=== PATIENT | female | born 1945 | race Caucasian/White ===

== ENCOUNTER 2024-03-19 00:05 | Inpatient (IN) | payer MEDICARE, BC ==
[~2024-03-19] VITALS: Ht 167.6 cm; Wt 86.2 kg
[2024-03-19] VITALS (12 sets, daily range): BP systolic 89–120; BP diastolic 46–73; PULSE 59–73; TEMP 97.5–98.7
[2024-03-19] MEDS ORDERED: ARICEPT10 MG PO (00:16)
[2024-03-19] MEDS ORDERED: OSPHENA60 MG PO (00:16)
[2024-03-19] MEDS ORDERED: VASCEPA1 GM PO (00:16)
[2024-03-19] MEDS ORDERED: TIROSINT25 MC1 PO (00:17)
[2024-03-19] MEDS ORDERED: ZOCOR5 MG PO (00:17)
[2024-03-19] MEDS ORDERED: VESICARE10 MG PO (00:18)
[2024-03-19] MEDS ORDERED: KAPSPARGO SPRIN25 MG PO (00:19)
[2024-03-19] MEDS ORDERED: ASPIRIN 81M81 MG/TA2 PO (00:20)
[2024-03-19] MEDS ORDERED: VITAMIN D31000 I1 PO (00:20)
[2024-03-19] MEDS ORDERED: ZYRTEC ALLERGY10 MG PO (00:20)
[2024-03-19] MEDS ORDERED: CALCIUM CITRAT200 M2 PO (00:21)
[2024-03-19] MEDS ORDERED: PREVAGEN PO (00:22)
[2024-03-19 00:50] LABS: BASO % 0.1 % (0.0-2.0); EOS # 0.1 K/mm3 (0.0-0.7); EOS % 0.5 % (0.0-4.0); GRAN # 11.7 K/mm3 (1.4-6.5); GRAN % 84.1 % (42.2-75.2); LYMPH # 1.6 K/mm3 (1.2-3.4); LYMPH % 11.5 % (20.0-51.0); MEAN CELL VOLUME 90 fl (80.0-100.0); MEAN CORPUSCULAR HGB CONC 33 g/dl (33.0-37.0); MEAN PLATELET VOLUME 10.8 fl (7.4-10.4); MONO # 0.5 K/mm3 (0.1-0.6); MONO % 3.4 % (1.7-9.3); PLATELET COUNT 266 K/mm3 (130-400); RED BLOOD COUNT 3.24 M/mm3 (4.10-5.30); REDCELL DISTRIBUTION WIDTH-CV 12.6 % (11.5-14.5)
[2024-03-19 00:54] LABS: HEMOGLOBIN 9.6 g/dl (12.5-16.0); MEAN CORPUSCULAR HEMOGLOBIN 30 pg (27-31)
[2024-03-19 00:58] LABS: INR 1.1 (0.8-3.0); PROTHROMBIN TIME 11.9 SECONDS (9.7-12.8)
[2024-03-19 01:01] LABS: PARTIAL THROMBOPLASTIN TIME 23.2 SECONDS (26.0-37.0)
[2024-03-19 01:03] LABS: ALANINE AMINOTRANSFERASE 7 U/L (0-55); ALBUMIN 2.8 g/dL (3.4-4.8); ALKALINE PHOSPHATASE 52 U/L (40-150); ANION GAP 11 mmol/L (7-16); AST,SGOT 14 U/L (5-34); BILIRUBIN,TOTAL 0.2 mg/dL (0.2-1.2); BLOOD UREA NITROGEN 38 mg/dL (10-20); CALCIUM 8.6 mg/dL (8.4-10.2); CHLORIDE 110 mEq/L (98-107); CREATININE, serum 0.87 mg/dL (0.57-1.11); GLUCOSE 142 mg/dL (70-99); POTASSIUM 4.3 mEq/L (3.5-4.5); SODIUM 142 mEq/L (136-145); TOTAL PROTEIN 5.8 g/dl (6.2-8.1)
[2024-03-19 01:10] LABS: TROPONIN-I < 0.010 ng/mL (0.00-0.033)
[2024-03-19] MEDS ORDERED: Pantoprazole 40 MG in NS 10 ML IV SCH (01:23)
[2024-03-19] MEDS ORDERED: LOPRESSOR 225 MG/TAB PO (01:26)
[2024-03-19] MEDS ORDERED: NS 1,000 ML IV SCH (01:30)
[2024-03-19] MEDS ORDERED: Iohexol 300 - 100 ML VIAL IV ONE (01:34)
[2024-03-19 01:52] LABS: URINE APPEARANCE CLEAR (CLEAR/HAZY); URINE BLOOD NEGATIVE (NEGATIVE); URINE COLOR YELLOW (YELLOW); URINE GLUCOSE NEGATIVE (NEGATIVE); URINE KETONE NEGATIVE (NEGATIVE); URINE NITRATE NEGATIVE (NEGATIVE); URINE PROTEIN(semi-quant) NEGATIVE (NEGATIVE); URINE UROBILINOGEN 0.2 E.U/dL (0.2-1.0)
[2024-03-19 01:54] LABS: COLLECTION METHOD CLEAN CATCH
[2024-03-19] MEDS ORDERED: cefTRIAXone 2 G in Water For Injection,Sterile 20 ML IV SCH (02:15)
--- NOTE | 2024-03-19 03:00 | NUR ---
PATIENT ARRIVED TO ROOM #318 VIA WHEELCHIAR FROM ER. PATIENT ASSISTED TO BED WITH STAND BY ASSIST. GAIT STEADY. INT TO LEFT WRIST INTACT WITH NO COMPLICATIONS NOTED. DAUGHTER GISELA AT BEDSIDE. PATIENT VERBALIZED UNDERSTANDING OF CALL LIGHT AND BED CONTROLS. PATIENT DENIES ANY NEEDS AT THIS TIME. BED IN LOW POSITION WITH WHEELS LOCKED WITH RAILS UP X3 AND CALL LIGHT WITHIN REACH. BED ALARM ON.
--- NOTE | 2024-03-19 03:15 | NUR ---
PATIENT RESTING IN BED WITH TV OFF WITH DAUGHTER AT BEDSIDE WITH NO ACUTE DISTRESS NOTED. PATIENT ON ROOM AIR. INT TO LEFT WRIST INTACT WITH NO COMPLICATIONS NOTED. INTIAL INTAKE AND INITAL ASSESSMENT COMPLETED AT THIS TIME. PATIENT TOLERATED WELL. PATIENT DENIES ANY NEEDS AT THIS TIME. BED IN LOW POSITION WITH WHEELS LOCKED WITH RAILS UP X3 AND CALL LIGHT WITHIN REACH. BED ALARM ON.
--- NOTE | 2024-03-19 03:25 | NUR ---
PATIENT RESTING IN BED LAYING ON LEFT SIDE WITH TV OFF WITH DAUGHTER AT BEDSAIDE WITH NO ACUTE DISTRESS NOTED. PATIENT ON ROOM AIR. INT TO LEFT WRIST INTACT WITH NO COMPLICATIONS NOTED. MEDICATION ADMINISTRATION COMPLETED AT THIS TIME. PATIENT TOLERATED WELL. PAITENT DENIES ANY NEEDS AT THIS TIME. BED IN LOW POSITION WITH WHEELS LOCKED WITH RAILS UP X3 AND CALL LIGHT WITHIN REACH. BED ALARM ON.
[2024-03-19 06:56] LABS: BASO % 0.2 % (0.0-2.0); EOS % 0.3 % (0.0-4.0); GRAN # 8.5 K/mm3 (1.4-6.5); GRAN % 79.5 % (42.2-75.2); LYMPH # 1.7 K/mm3 (1.2-3.4); LYMPH % 15.4 % (20.0-51.0); MEAN CELL VOLUME 91 fl (80.0-100.0); MEAN CORPUSCULAR HGB CONC 32 g/dl (33.0-37.0); MEAN PLATELET VOLUME 11.2 fl (7.4-10.4); MONO # 0.4 K/mm3 (0.1-0.6); MONO % 3.9 % (1.7-9.3); PLATELET COUNT 228 K/mm3 (130-400); RED BLOOD COUNT 2.91 M/mm3 (4.10-5.30); REDCELL DISTRIBUTION WIDTH-CV 12.7 % (11.5-14.5)
[2024-03-19 07:00] LABS: HEMATOCRIT 26.6 % (37.0-47.0); HEMOGLOBIN 8.5 g/dl (12.5-16.0); MEAN CORPUSCULAR HEMOGLOBIN 29 pg (27-31)
[2024-03-19 07:09] LABS: CALCIUM 8.1 mg/dL (8.4-10.2); CREATININE, serum 0.77 mg/dL (0.57-1.11); POTASSIUM 4.2 mEq/L (3.5-4.5)
[2024-03-19] MEDS ORDERED: Patient's Own Medication Item PO SCH (08:00)
[2024-03-19] MEDS ORDERED: Cholecalciferol (Vit D3) 1000 Units TAB PO SCH (09:00)
[2024-03-19] MEDS ORDERED: Solifenacin 5 MG **** subs to Oxybutynin XL 5 MG PO SCH (09:00)
[2024-03-19] MEDS ORDERED: Cetirizine 10 MG TAB PO SCH (09:00)
--- NOTE | 2024-03-19 12:40 | NUR ---
D: Initial visit: Career Development Specialist stopped by room on rounds. A: Pt was resting and content. Pt has no needs right now. P: Career Development Specialist informed pt that if she needed anything from the veterinary surgeon area to let her nurse know Career Development Specialist will follow up as needed.
--- NOTE | 2024-03-19 13:59 | NUR ---
Product/Industry Consultant met with patient to discuss discharge planning. Patient lives in [place], [place] but was here visiting her daughter, Kitty (ph#[phone]). Patient did remark she lost her a few years ago and plans to move to [place] at some point. Patient stated she is on the waitlist at [facility]. Patient does not have a primary care physician she regularly sees as she stated she is normally pretty healthy. Patient stated there is a clinic in [place]. Patient does not use any DME and is independent with [facility]. Patient thinks she has completed DPOA-HC that designates either her daughter, Kitty or brother, Himanshu. Patient plans to return to Kitty's home at time of discharge. Discharge Plan: Home with Family
[2024-03-19] MEDS ORDERED: Ondansetron 4 MG/2 ML VIAL IV PRN (15:15)
[2024-03-19] MEDS ORDERED: Bisacodyl 5 MG TAB PO SCH (16:00)
[2024-03-19 16:21] LABS: HEMOGLOBIN 8.1 g/dl (12.5-16.0)
[2024-03-19] MEDS ORDERED: Polyethylene Glycol 3350 119 GM BOTTLE PO SCH (18:00)
--- NOTE | 2024-03-19 18:57 | NUR ---
PATIENT RESTING IN BED WITH TV ON WITH NO FAMILY PRESENT WITH NO ACUTE DISTRESS NOTED. PATIENT ON ROOM AIR. NS INFUSING INTO LEFT WRIST WITH NO COMPLICATIONS NOTED. PATIENT REQUESTED HELP TO BATHROOM AND WAS ASSISTED WITH STAND BY ASSIST. GAIT STEADY. PATIENT DID OWN FRANCOISE CARE. PATIENT ASSISTED BACK TO BED AND HELPED TO REPOSITION FOR COMFORT. PATIENT TOLERATED WELL. PATIENT CARE ASSUMED FROM [facility]. PATIENT DENIES ANY OTHER NEEDS. BED IN LOW POSITION WITH WHEELS LOCKED WITH RAILS UP X2 AND CALL LIGHT WITHIN REACH. BED ALARM ON.
--- NOTE | 2024-03-19 19:31 | NUR ---
Pt tolerated advance from NPO to clear liquid diet without c/o nausea or vomitting. Pt did have a large bloody stool this morning and blood pressure on soft side. Dr. Gomez made aware. New orders rec'd. Aware that PRBC became ready at approximately 1815. Pt denied pain or needs throughout day. IVF infusing to LW as ordered without s/s IV related complications. Bedside report given to LINDA Pang and she is going to transfuse blood.
[2024-03-19] MEDS ORDERED: Atorvastatin 10 MG TAB PO SCH (21:00)
[2024-03-19] MEDS ORDERED: Simvastatin 10 MG **** subs to Atorvastatin 5 MG PO SCH (21:00)
[2024-03-19] MEDS ORDERED: Donepezil 5 MG TAB PO SCH (21:00)
--- NOTE | 2024-03-19 21:15 | NUR ---
PATIENT RESTING IN BED WITH TV ON WITH NO FAMILY PRESENT WITH NO ACUTE DISTRESS NOTED. PATIENT ON ROOM AIR. NS INFUSING INTO LEFT WRIST WITH NO COMPLICATIONS NOTED. PATIENT REQUESTED HELP TO BATHROOM AND PATIENT ASSSITED TO BATHROO BY PRIMARY NURSE. PATIENT HAD LARGE GREEN BOWEL MOVEMENT. PATIENT GIVEN PULLUP DUE TO HAVE MESSED UP HER UNDERWEAR. PATIENT DID OWN FRANCOISE CARE AND WAS ASSISTED BACK TO BED WITH STAND BY ASSIST. GAIT STEADY. PATIENT HELPED TO REPOSITION FOR COMFORT. ASSESSMENT, MEDICATION ADMINISTRATION, AND VITAL SIGNS TAKEN. PATIENT TOLERATED WELL. PATIENT DENIES ANY OTHER NEEDS AT THIS TIME. BED IN LOW POSITION WITH WHEELS LOCKED WITH RAILS UP X2 AND CALL LIGHT WITHIN REACH. BED ALARM ON.
--- NOTE | 2024-03-19 22:45 | NUR ---
PATIENT PULLED OUT WRIST IV WHILE GOING TO BATHROOM. CATHETER INTACT. PRESSURE DRESSING APPLIED.
--- NOTE | 2024-03-19 22:52 | NUR ---
NEW IV OBTAINED TO LEFT OUTER AC. PATIENT TOLERATED WELL. PATIENT VERBALIZED UNDERSTANDING THAT BLOOD WOULD BE STARTED SOON. VITAL SIGNS TAKEN.
--- NOTE | 2024-03-19 23:35 | NUR ---
UNIT OF PRBC STARTED AT 2335. PATIENT TOLERATING WELL.
[2024-03-20] VITALS (17 sets, daily range): BP systolic 101–134; BP diastolic 40–68; PULSE 66–94; TEMP 97.7–98.9
[2024-03-20] MEDS ORDERED: Polyethylene Glycol 3350 119 GM BOTTLE PO SCH (05:00)
[2024-03-20] MEDS ORDERED: LR 1,000 ML IV SCH (05:00)
[2024-03-20 05:03] LABS: BASO % 0.3 % (0.0-2.0); EOS # 0.1 K/mm3 (0.0-0.7); EOS % 1.3 % (0.0-4.0); GRAN # 6.4 K/mm3 (1.4-6.5); GRAN % 68.9 % (42.2-75.2); LYMPH # 2.2 K/mm3 (1.2-3.4); LYMPH % 23.8 % (20.0-51.0); MEAN CELL VOLUME 89 fl (80.0-100.0); MEAN CORPUSCULAR HGB CONC 32 g/dl (33.0-37.0); MEAN PLATELET VOLUME 10.9 fl (7.4-10.4); MONO # 0.4 K/mm3 (0.1-0.6); MONO % 4.6 % (1.7-9.3); PLATELET COUNT 196 K/mm3 (130-400); REDCELL DISTRIBUTION WIDTH-CV 13.3 % (11.5-14.5)
[2024-03-20 05:04] LABS: HEMATOCRIT 28.4 % (37.0-47.0); HEMOGLOBIN 9.2 g/dl (12.5-16.0); MEAN CORPUSCULAR HEMOGLOBIN 29 pg (27-31)
[2024-03-20 05:21] LABS: CREATININE, serum 0.75 mg/dL (0.57-1.11); MAGNESIUM 1.7 mg/dL (1.6-2.6); POTASSIUM 3.8 mEq/L (3.5-4.5)
[2024-03-20] MEDS ORDERED: Lidocaine PF 2% (20 MG/ML) 5 ML VIAL ONE (12:28)
[2024-03-20 19:48] LABS: CLOSTRIDIUM DIFF A/B NEG
[2024-03-21 03:52] VITALS: BP 116/65; PULSE 63; TEMP 97.8
[2024-03-21 05:00] VITALS: BP_SYST 126
[2024-03-21 06:33] LABS: HEMATOCRIT 26.6 % (37.0-47.0); HEMOGLOBIN 8.8 g/dl (12.5-16.0)
[2024-03-21 07:35] VITALS: BP 126/71; PULSE 72; TEMP 98
--- NOTE | 2024-03-21 07:49 | NUR ---
NURSING SHIFT ASSESSMENT COMPLETED. THE PATIENT IS ALERT AND ORIENTED. THE PATIENT DENIES PAIN OR DISCOMFORT AT THIS TIME. CALL LIGHT AND PERSONAL BELONGINGS WITHIN REACH.
[2024-03-21 08:00] VITALS: BP_SYST 126
[2024-03-21] MEDS ORDERED: FERRO-TIME325 MG PO (09:35)
--- NOTE | 2024-03-21 11:30 | NUR ---
Initial visit; Patient thanked Doll Wigs Hackler for looking in on her and offering Spiritual Care. Her son-in-law was present offering support. Gini hopes to move to [place] and thanked Doll Wigs Hackler for offering encouragement and God's blessings.
[2024-03-21 11:34] VITALS: BP 131/62; PULSE 78; TEMP 98.2
--- NOTE | 2024-03-21 12:46 | NUR ---
Patient alert and oriented x4, but noted to be forgetful. Shift assessment complete this morning. Patient denies pain or discomfort. Son-in-law at bedside throughout morning. Discharge orders obtained. Discharge instructions discussed with patient and son-in-law including follow-up appointments, changes to medications/new medications, and education packets. Patient and family member verbalized understanding. IV discontinued to left forearm with no complications. No telemetry present. Patient's personal medications returned from pharmacy. Patient escorted to family car at ER entrance via wheelchair by staff.
== END 2024-03-21 12:45 | disposition home or self-care (01) | DRG 378 ==
LOC: COL.ER 00:05 → MEDICAL 02:13
PROVIDERS: Emergency Medicine; Internal Medicine; Internal Medicine Gastroenterology; Nurse Practitioner Family; ADMIT Internal Medicine
PROC: 30233N1 Transfusion of Nonautologous Red Blood Cells into Peripheral Vein, Percutaneous Approach (ICD-10-PCS; 2024-03-19)
PROC: 0DJ08ZZ Inspection of Upper Intestinal Tract, Via Natural or Artificial Opening Endoscopic (ICD-10-PCS; principal; 2024-03-20 13:15)
PROC: 0DBP8ZX Excision of Rectum, Via Natural or Artificial Opening Endoscopic, Diagnostic (ICD-10-PCS; 2024-03-20 13:15)
DX: K57.31 Diverticulosis of large intestine without perforation or abscess with bleeding (principal); E87.20 Acidosis, unspecified; N39.0 Urinary tract infection, site not specified; I95.9 Hypotension, unspecified; E78.5 Hyperlipidemia, unspecified; E03.9 Hypothyroidism, unspecified; E86.9 Volume depletion, unspecified; N85.8 Other specified noninflammatory disorders of uterus; R91.8 Other nonspecific abnormal finding of lung field; F03.90 Unspecified dementia, unspecified severity, without behavioral disturbance, psychotic disturbance, mood disturbance, and anxiety; K62.89 Other specified diseases of anus and rectum; I10 Essential (primary) hypertension; I48.91 Unspecified atrial fibrillation; K21.9 Gastro-esophageal reflux disease without esophagitis; F41.9 Anxiety disorder, unspecified; J44.9 Chronic obstructive pulmonary disease, unspecified; G47.33 Obstructive sleep apnea (adult) (pediatric); D50.0 Iron deficiency anemia secondary to blood loss (chronic); N32.81 Overactive bladder; Z87.891 Personal history of nicotine dependence; Z79.890 Hormone replacement therapy; Z79.82 Long term (current) use of aspirin; Z79.899 Other long term (current) drug therapy; Z23 Encounter for immunization
CPT/HCPCS: C9113; J0696; J2704; J7030; P9016; Q9967